=== PATIENT | female | born 1960 | race Caucasian/White ===

== ENCOUNTER 2019-10-20 20:29 | Emergency (ER) | payer MEDICARE, MEDICAID, SELFPAY ==
--- NOTE | ~2019-10-20 | XR_ITS ---
EXAMINATION: XR chest 1V portable EXAM DATE: 10/20/2019 20:56 INDICATION: Chest pain. TECHNIQUE: Portable AP frontal chest x-ray was obtained. There is no prior study for comparison. FINDINGS: The lungs are clear. There are no pleural effusions. The cardiomediastinal silhouette is within normal limits. There is no pneumothorax suspected. The bones and soft tissues are unremarkab le. IMPRESSION: No acute cardiopulmonary findings. Reviewed, dictated and finalized at location A.
[2019-10-20 20:29] VITALS: BP 162/90; PULSE 81; RESP 14; O2SAT 96
--- NOTE | 2019-10-20 20:32 | ECG_ITS ---
Measurements Intervals [place] Rate: 81 P: 42 AR: 141 QRS: -12 QRSD: 90 T: 97 QT: 394 QTc: 458 Interpretive Statements SINUS RHYTHM DELAYED PRECORDIAL R/S TRANSITION BORDERLINE ST-T WAVE ABNORMALITY- LATERAL LEADS BORDERLINE ECG Electronically Signed On 10-21-2019 6:56:27 CDT by Brooks Richardson D.O.
[2019-10-20 20:36] VITALS: PULSE 82
[2019-10-20 20:37] VITALS: O2SAT 97
--- NOTE | 2019-10-20 20:39 | PC.NURSE ---
asa not given because already given by ems
--- NOTE | 2019-10-20 20:49 | ED.GENADULT ---
HPI - General Adult General Chief complaint: Chest Pain Stated complaint: cp Source: patient Mode of arrival: EMS Limitations: no limitations History of Present Illness HPI narrative: Patient is a 59-year-old female who presents for evaluation of chest pain. Patient reports chest pain began this morning. Described as a sharp pain over the center of the chest without radiation to the back, neck or jaw. No lower back pain, patient does report some generalized nausea and abdominal pain. She has been able to tolerate oral intake today. No vision changes. Patient is homeless, states she is currently living in her storage facility. She has a history of diabetes, she is a previous smoker with a history of COPD, not currently smoking. Patient denies any cough, congestion or shortness of breath. She reports she had chills today, denies fever. Related Data Home Medications Medication Instructions Recorded Confirmed chlorthalidone 10/20/19 cyclobenzaprine mg 10/20/19 empagliflozin [Jardiance] mg 10/20/19 eslicarbazepine [Aptiom] mg 10/20/19 insulin aspart U-100 [Novolog unit SUBCUT 10/20/19 Flexpen U-100 Insulin] insulin glargine [Lantus Solostar unit SUBCUT 10/20/19 U-100 Insulin] levetiracetam PO 10/20/19 metformin mg 10/20/19 sulfamethoxazole-trimethoprim 10/20/19 triamcinolone acetonide TOPICAL 10/20/19 Allergies Allergy/AdvReac Type Severity Reaction Status Date / Time hydrocodone Allergy Severe Anaphylaxis Verified 10/20/19 20:41 Penicillins Allergy Severe Anaphylaxis Verified 10/20/19 20:41 Review of Systems Review of Systems: Narrative: CONSTITUTIONAL: Denies fever, reports chills earlier EYES: Denies visual changes, redness, or discharge. ENT: Denies rhinorrhea, congestion, sore throat, or otalgia. CARDIOVASCULAR: Reports chest pain, denies palpitations or edema RESPIRATORY: Denies cough or dyspnea. GASTROINTESTINAL: Reports abdominal pain, nausea, denies vomiting or diarrhea GENITOURINARY: Denies dysuria or hematuria. SKIN: Denies rash or itching. MUSCULOSKELETAL: Denies back pain, joint pain, or myalgia. NEUROLOGIC: Denies headache, numbness, or weakness. [facility] Past Medical History Medical History (Updated 05/05/20 @ 00:54 by Mayelin Porter MD) Bronchitis COPD (chronic obstructive pulmonary disease) Diabetes Emphysema lung Social History Social History (Updated 10/20/19 @ 20:52 by Mayelin Porter MD) Smoking status: Former smoker Alcohol intake: never Substance use: never Gender identity (if verbalized by the patient): Female Exam Narrative: Exam Narrative: GENERAL: Awake, alert, conversant HEAD: Normocephalic, atraumatic. EYES: PERRLA and EOMI. ENT: Nares clear, no rhinorrhea or epistaxis. Mucous membranes moist. NECK: Supple. CHEST: No respiratory distress, breathing even and non labored, chest wall reproduces pain HEART: Regular rate, sinus rhythm ABDOMEN:Non distended, non tender EXTREMITIES: Normal range of motion. No edema. SKIN: Warm, dry, no rash. NEURO:No focal deficits. Alert and oriented x3 Course Vital Signs Vital signs: Vital Signs Pulse Rate 81 10/20/19 20:29 Respiratory Rate 14 10/20/19 20:29 Blood Pressure 162/90 H 10/20/19 20:29 Pulse Oximetry 96 10/20/19 20:29 Pulse Rate 72 10/20/19 23:36 Respiratory Rate 18 10/20/19 22:03 Blood Pressure 151/95 H 10/20/19 23:36 Pulse Oximetry 96 10/20/19 23:36 Medical Decision Making MDM Narrative Medical decision making narrative: Pt presented for evaluation of chest and abdominal pain, although on exam pt does have reproducible chest wall pain and abdomen is non tender non distended. Pt is also requesting food to eat at time of evaluation. Patient's EKG and labs are without significant high risk changes. Two troponin are undetected. No leukocytosis or transaminitis. Cardiac risk factors reviewed. Patient is felt low risk for acute ACS and reasonable for further risk strati
[2019-10-20 21:18] LABS: Basophils Absolute Auto 0.1 K/mm3 (0.0-0.1); Basophils Percent Auto 0.6 % (0.2-1.2); Eosinophils Absolute Auto 0.1 K/mm3 (0-0.3); Eosinophils Percent Auto 0.7 % (0-4.4); Hematocrit 42.2 % (37.0-47.0); Hemoglobin 13.6 g/dL (12.0-15.0); Immature Granulocyte Absolute 0.04 K/mm3 (0.00-0.031); Immature Granulocyte Percent A 0.4 % (0-0.5); Lymphocytes Absolute Auto 2.02 K/mm3 (0.9-3.2); Lymphocytes Percent Auto 22.3 % (18.3-44.2); Mean Corpuscular HGB Conc 32.2 g/dl (32-36); Mean Corpuscular Hemoglobin 26.9 pg (26-34); Mean Corpuscular Volume 83.6 fl (80-100); Monocytes Absolute Auto 0.7 K/mm3 (0.1-0.6); Monocytes Percent Auto 7.8 % (2.6-8.5); Neutrophils Absolute Auto 6.2 K/mm3 (1.3-6.7); Neutrophils Percent Auto 68.2 % (45.5-73.1); Platelet Count Result 225 k/mm3 (150-375); Red Blood Count 5.05 M/mm3 (4.2-5.4); Red Cell Distribution Width 13.2 % (11.5-14.5); White Blood Count 9.1 K/mm3 (4.5-10.0)
[2019-10-20 21:29] LABS: Alanine Aminotransferase 20 U/L (4-35); Albumin Level 3.8 g/dL (3.5-5.1); Alkaline Phosphatase 151 U/L (38-126); Aspartate Amino Transferase 26 U/L (14-36); Bilirubin,Total 0.3 mg/dL (0.2-1.3); Blood Urea Nitrogen 12 mg/dL (7-17); Calcium 9.1 mg/dL (8.4-10.2); Carbon Dioxide 30 mmol/L (22-30); Chloride 102 mmol/L (98-107); Estimated CRCL calculation 82 ml/min; Estimated Glomerular Filt Rate > 60; Glucose 224 mg/dL (65-105); Lipase 150 U/L (23-300); Potassium 3.8 mmol/L (3.4-5.0); Sodium 138 mmol/L (137-145)
[2019-10-20 21:30] LABS: INR 0.9; Partial Thromboplastin Time 27.1 SECONDS (22.3-36.8); Prothrombin Time 11.8 Seconds (11.1-14.7)
[2019-10-20 21:41] LABS: Troponin I < 0.012 ng/mL (0.000-0.034)
[2019-10-20 22:03] VITALS: BP 152/90; PULSE 81; RESP 18; O2SAT 97
[2019-10-20 23:36] VITALS: BP 151/95; PULSE 72; O2SAT 96
--- NOTE | 2019-10-21 00:02 | ECG_ITS ---
Measurements Intervals [place] Rate: 62 P: 46 DC: 139 QRS: -14 QRSD: 88 T: 99 QT: 437 QTc: 445 Interpretive Statements SINUS RHYTHM BORDERLINE T WAVE ABNORMALITY- LATERAL LEADS BORDERLINE ECG Electronically Signed On 10-21-2019 7:02:23 CDT by Brooks Richardson D.O.
[2019-10-21 00:45] LABS: Troponin I < 0.012 ng/mL (0.000-0.034)
[2019-10-21 01:32] VITALS: BP 158/90; PULSE 93; RESP 20; O2SAT 98
== END 2019-10-21 01:25 | disposition home or self-care (01) ==
PROVIDERS: Emergency Provider Emergency Medicine; PCP Family Medicine
DX: R07.89 Other chest pain (principal); E11.9 Type 2 diabetes mellitus without complications; J43.9 Emphysema, unspecified; Z87.891 Personal history of nicotine dependence; Z79.4 Long term (current) use of insulin; Z79.84 Long term (current) use of oral hypoglycemic drugs; R94.31 Abnormal electrocardiogram [ECG] [EKG]
CPT/HCPCS: 36415; 71045; 80053; 83690; 84484; 85025; 85610; 85730; 93005; 99284